=== PATIENT | female | born 1975 | race Caucasian/White ===

== ENCOUNTER 2021-10-03 15:25 | Outpatient (CLI) | payer BC | END 2021-10-03 15:26 | disposition home or self-care (01) | LOC: BICRAD 15:25 | PROVIDERS: ATTEND Family Medicine | DX: S99.922A Unspecified injury of left foot, initial encounter (principal) ==

== ENCOUNTER 2021-12-04 15:35 | Outpatient (CLI) | payer BC ==
[2021-12-04 16:36] LABS: Hemoglobin 14.2 g/dL (12.0-15.5); Mean Corpuscular HGB CONC 32.1 g/dL (32.0-36.0); Mean Corpuscular Hemoglobin 29.6 pg (27.0-33.0); Mean Corpuscular Volume 92.1 fl (81.6-98.3); Mean Platelet Volume 10.2 fl (7.4-10.4); Platelet Count 212 10x3/uL (150-450); RBC Distribution Width 12.5 % (11.5-14.5); White Blood Cell (WBC) Count 5.1 10x3/uL (3.5-10.5)
[2021-12-04 16:53] LABS: Prothrombin Time 10.6 sec (9.5-12.1)
[2021-12-04 17:07] LABS: Anion Gap 13 mmol/L (10-20); BUN (Urea Nitrogen) 13 mg/dL (7.0-18.7); Calc. Creatinine Clearance 0 mL/min (70-130); Calcium 9.2 mg/dL (7.8-10.44); Carbon Dioxide 28 mmol/L (22-29); Chloride 104 mmol/L (98-107); Glucose 88 mg/dL (70-105); Potassium 4.3 mmol/L (3.5-5.1); Sodium 141 mmol/L (136-145)
[2021-12-04 23:11] LABS: SARS-CoV-2 PCR by NAA Not Detected (NotDetected)
== END 2021-12-04 15:36 | disposition home or self-care (01) ==
LOC: LABBT 15:35
PROVIDERS: ATTEND Internal Medicine Cardiovascular Disease
DX: Z01.812 Encounter for preprocedural laboratory examination (principal); I47.1 Supraventricular tachycardia; Z20.822 Contact with and (suspected) exposure to COVID-19
CPT/HCPCS: 80048; 85027; 85610; U0003; U0005

== ENCOUNTER 2021-12-07 06:03 | Day surgery (SDC) | payer BC ==
[2021-12-04 10:48] VITALS: BMI 34.4
[2021-12-07] MEDS ORDERED: Heparin 10,000 UNITS/ 10 ML VIAL ONE (06:48)
[2021-12-07] MEDS ORDERED: PROPOFOL 200 MG/20 ML VIAL ONE (07:35)
[2021-12-07] MEDS ORDERED: Midazolam HCl 2 mg/2 ml Vial ONE ×2 (07:38→08:07)
[2021-12-07] MEDS ORDERED: Fentanyl 100 MCG/2 ML VIAL ONE ×2 (07:39→09:34)
[2021-12-07] MEDS ORDERED: Isoproterenol 0.2 MG/1 ML AMP ONE (08:32)
== END 2021-12-07 14:14 | disposition home or self-care (01) ==
LOC: SDC 06:03 → CCL 14:14
PROVIDERS: ATTEND Internal Medicine Cardiovascular Disease
PROC: 02583ZZ Destruction of Conduction Mechanism, Percutaneous Approach (ICD-10-PCS; principal; 2021-12-07)
PROC: 02K83ZZ Map Conduction Mechanism, Percutaneous Approach (ICD-10-PCS; principal; 2021-12-07)
DX: I47.1 Supraventricular tachycardia (principal); E78.5 Hyperlipidemia, unspecified; J45.909 Unspecified asthma, uncomplicated; K21.9 Gastro-esophageal reflux disease without esophagitis; E11.9 Type 2 diabetes mellitus without complications; E66.9 Obesity, unspecified; Z68.34 Body mass index [BMI] 34.0-34.9, adult; Z79.82 Long term (current) use of aspirin; Z79.899 Other long term (current) drug therapy; Z88.8 Allergy status to other drugs, medicaments and biological substances
CPT/HCPCS: 93005; 93613; 93621; 93623; 93653; C1732; C1776; C1894; C2630; J1644; J2250; J2704; J3010